=== PATIENT | female | born 1990 | race Caucasian/White ===

== ENCOUNTER 2016-09-01 16:30 | Emergency (ER) | payer SELFPAY ==
[~2016-09-01] VITALS: Ht 152.4 cm; Wt 96.8 kg
[2016-09-01 16:47] LABS: GLUCOSE,POINT OF CARE 105 MG/DL (70-110)
[2016-09-01] MEDS ORDERED: METHOCARBAMOL 500 MG TABLET PO ONE (19:45)
[2016-09-01] MEDS ORDERED: KETOROLAC TROMETHAMINE 60 MG/2 ML VIAL IM ONE (19:45)
[2016-09-01 20:26] VITALS: BP 125/79
== END 2016-09-01 20:28 | disposition home or self-care (01) ==
LOC: EMS 16:40
DX: S16.1XXA Strain of muscle, fascia and tendon at neck level, initial encounter (principal); S29.012A Strain of muscle and tendon of back wall of thorax, initial encounter; J45.909 Unspecified asthma, uncomplicated; V49.50XA Passenger injured in collision with unspecified motor vehicles in traffic accident, initial encounter; Y93.89 Activity, other specified; Y92.89 Other specified places as the place of occurrence of the external cause; Y99.8 Other external cause status
CPT/HCPCS: 81025; 82962; 96372; 99283; J1885

== ENCOUNTER 2017-10-27 18:34 | Emergency (ER) | payer OTHER ==
[~2017-10-27] VITALS: Ht 152.4 cm; Wt 104.5 kg
[2017-10-27] MEDS ORDERED: LEVO50 PO (18:40)
[2017-10-27 19:01] LABS: BASOPHILS % (AUTO) 0.4 % (0.0-2.0); EOSINOPHILS % (AUTO) 1.3 % (1.0-6.0); HEMATOCRIT 39.1 % (36-46); HEMOGLOBIN 13.4 g/dL (12.0-16.0); LYMPHOCYTES % (AUTO) 27.5 % (22.0-44.0); MEAN CORPUSCULAR HEMOGLOBIN 30.5 pg (26.0-34.0); MEAN CORPUSCULAR HGB CONC 34.2 G/dL (31.0-37.0); MEAN CORPUSCULAR VOLUME 89 fL (80-100); MONOCYTES # (AUTO) 0.7 K/uL (0.1-1.0); MONOCYTES % (AUTO) 9.5 % (2.0-9.0); NEUTROPHILS # (AUTO) 4.4 K/uL (1.8-7.7); NEUTROPHILS % (AUTO) 61.3 % (40.0-70.0); PLATELET COUNT (AUTO) 218 K/uL (150-450); RED BLOOD CELL COUNT(AUTO) 4.38 MIL/uL (4.00-5.20); RED CELL DISTRIBUTION WIDTH 14.4 % (11.5-14.5)
[2017-10-27 19:17] LABS: ANION GAP 7 mmol/L (8-16); CALCIUM, TOTAL 8.2 mg/dL (8.8-10.5); CARBON DIOXIDE 26 mmol/L (22-29); CHLORIDE 101 mmol/L (98-107); CREATININE 0.84 mg/dL (0.60-1.30); GLOMERULAR FILTR. RATE CALC > 60 mL/min (>60); GLUCOSE,RANDOM 101 mg/dL (70-110); POTASSIUM 3.6 mmol/L (3.5-5.1); SODIUM SERUM 134 mmol/L (136-145); UREA NITROGEN, BLOOD 12 mg/dL (7-18)
[2017-10-27 19:23] LABS: ALANINE AMINOTRANSFERASE 84 U/L (12-78); ALBUMIN 3.9 g/dL (3.4-5.0); ALKALINE PHOSPHATASE 65 U/L (46-116); AMYLASE 43 U/L (25-115); ASPARTATE AMINOTRANSFERASE 39 U/L (15-37); BILIRUBIN,TOTAL 0.4 mg/dL (0.1-1.0); LIPASE 110 U/L (73-393); TOTAL PROTEIN, SERUM 7.8 g/dL (6.4-8.2)
[2017-10-27] MEDS ORDERED: PB/HYOSCY/ATR/SCOP/LIDO/MAALOX 55 ML BOTTLE PO ONE (19:45)
[2017-10-27 20:05] LABS: APPEARANCE,URINE CLOUDY (CLEAR); BILIRUBIN,URINE NEGATIVE (NEGATIVE); GLUCOSE, URINE (UA) NEGATIVE (NEGATIVE); KETONES,URINE TRACE mg/dL (NEGATIVE); LEUKOCYTE ESTERASE ,URINE SMALL (NEGATIVE); NITRATE,URINE NEGATIVE (NEGATIVE); OCCULT BLOOD,URINE SMALL (NEGATIVE); PROTEIN,URINE POS 1+ (NEGATIVE); UROBILINOGEN,URINE 0.2 mg/dL (<=1.0)
[2017-10-27 20:18] LABS: BACTERIA,URINE Few /HPF (None Seen); SQUAMOUS EPITHELIAL CELL,UR Moderate /LPF (None Seen)
[2017-10-27 20:46] VITALS: BP 115/66
== END 2017-10-27 20:48 | disposition home or self-care (01) ==
LOC: EMS 18:35
DX: K25.9 Gastric ulcer, unspecified as acute or chronic, without hemorrhage or perforation (principal); J45.909 Unspecified asthma, uncomplicated; E03.9 Hypothyroidism, unspecified
CPT/HCPCS: 36415; 80053; 81001; 82150; 83690; 84703; 85025; 87086; 99284; Z7610

== ENCOUNTER 2019-06-04 07:17 | Emergency (ER) | payer OTHER ==
[~2019-06-04] VITALS: Ht 160 cm; Wt 77.6 kg
[~2019-06-04 07:17] MED LIST: LEVO50 PO
[2019-06-04] MEDS ORDERED: IRON-24 PO (07:43)
[2019-06-04 07:50] LABS: BASOPHILS % (AUTO) 0.6 % (0.0-2.0); EOSINOPHILS % (AUTO) 0.2 % (1.0-6.0); HEMATOCRIT 29.4 % (36-46); HEMOGLOBIN 9.3 g/dL (12.0-16.0); LYMPHOCYTES # (AUTO) 0.4 K/uL (1.0-4.8); LYMPHOCYTES % (AUTO) 3.2 % (22.0-44.0); MEAN CORPUSCULAR HEMOGLOBIN 24.8 pg (26.0-34.0); MEAN CORPUSCULAR HGB CONC 31.6 G/dL (31.0-37.0); MEAN CORPUSCULAR VOLUME 79 fL (80-100); MONOCYTES # (AUTO) 0.2 K/uL (0.1-1.0); MONOCYTES % (AUTO) 1.6 % (2.0-9.0); NEUTROPHILS # (AUTO) 10.4 K/uL (1.8-7.7); PLATELET COUNT (AUTO) 231 K/uL (150-450); RED BLOOD CELL COUNT(AUTO) 3.74 MIL/uL (4.00-5.20); RED CELL DISTRIBUTION WIDTH 20.4 % (11.5-14.5)
[2019-06-04 07:53] LABS: NEUTROPHILS % (AUTO) 94.4 % (40.0-70.0)
[2019-06-04 08:00] LABS: ANION GAP 7 mmol/L (8-16); CALCIUM, TOTAL 8.3 mg/dL (8.8-10.5); CARBON DIOXIDE 26 mmol/L (22-29); CHLORIDE 105 mmol/L (98-107); CREATININE 0.65 mg/dL (0.60-1.30); GLOMERULAR FILTR. RATE CALC > 60 mL/min (>60); GLUCOSE,RANDOM 102 mg/dL (70-110); POTASSIUM 3.7 mmol/L (3.5-5.1); SODIUM SERUM 138 mmol/L (136-145); UREA NITROGEN, BLOOD 10 mg/dL (7-18)
[2019-06-04] MEDS ORDERED: ACETAMINOPHEN 500 MG TABLET PO ONE (08:00)
[2019-06-04 08:14] LABS: HCG,QUANTITATIVE < 1 mIU/mL (0-6)
[2019-06-04] MEDS ORDERED: KETOROLAC TROMETHAMINE 30 MG/ML VIAL IVP ONE (08:45)
[2019-06-04] MEDS ORDERED: SODIUM CHLORIDE 0.9% 1,000 ML IV ONE (09:30)
[2019-06-04 09:47] LABS: APPEARANCE,URINE CLOUDY (CLEAR); BILIRUBIN,URINE NEGATIVE (NEGATIVE); GLUCOSE, URINE (UA) NEGATIVE (NEGATIVE); KETONES,URINE NEGATIVE (NEGATIVE); LEUKOCYTE ESTERASE ,URINE LARGE (NEGATIVE); NITRATE,URINE POSITIVE (NEGATIVE); OCCULT BLOOD,URINE SMALL (NEGATIVE); PROTEIN,URINE TRACE (NEGATIVE); UROBILINOGEN,URINE 0.2 mg/dL (<=1.0)
[2019-06-04 09:50] LABS: BACTERIA,URINE Many /HPF (None Seen); WBC,URINE >100 /HPF (0-5)
[2019-06-04 09:51] LABS: SQUAMOUS EPITHELIAL CELL,UR Moderate /LPF (None Seen)
[2019-06-04] MEDS ORDERED: CefTRIAXone 1 GM/DEXTROSE 50 ML IV ONE (10:00)
[2019-06-04 11:20] VITALS: BP 100/74
[2019-06-04] MEDS ORDERED: LEVO88TA7 PO (17:21)
[2019-06-04] MEDS ORDERED: FERR325T22 PO (17:21)
[2019-06-04] MEDS ORDERED: BACL10TA PO (17:21)
[2019-06-04] MEDS ORDERED: GABA-529 PO (17:21)
[2019-06-04] MEDS ORDERED: DOCU100C33 PO (17:21)
[2019-06-04] MEDS ORDERED: ERGO500014 PO (17:21)
== END 2019-06-04 11:58 | disposition home or self-care (01) ==
LOC: EMS 07:18
DX: N10 Acute pyelonephritis (principal); D64.9 Anemia, unspecified; J45.909 Unspecified asthma, uncomplicated; E03.9 Hypothyroidism, unspecified; Z79.899 Other long term (current) drug therapy
CPT/HCPCS: 36415; 80048; 81001; 84702; 85025; 87077; 87086; 87186; 96365; 96375; 99283; J0696; J1885; J7030

== ENCOUNTER 2019-06-04 16:28 | Inpatient (IN) | payer OTHER ==
[~2019-06-04] VITALS: Ht 152.4 cm; Wt 77.3 kg
[~2019-06-04 16:28] MED LIST changes: +IRON-24 PO
[2019-06-04] MEDS ORDERED: KETOROLAC TROMETHAMINE 30 MG/ML VIAL IVP ONE (17:15)
[2019-06-04] MEDS ORDERED: SODIUM CHLORIDE 0.9% 1,000 ML IV ONE ×3 (17:15→19:15)
[2019-06-04] MEDS ORDERED: ACETAMINOPHEN 1000 MG/ISO-OSM 100 ML IV ONE (17:15)
[2019-06-04] MEDS ORDERED: BACL10TA PO (17:21)
[2019-06-04] MEDS ORDERED: GABA-529 PO (17:21)
[2019-06-04] MEDS ORDERED: ERGO500014 PO (17:21)
[2019-06-04] MEDS ORDERED: LEVO88TA7 PO (17:21)
[2019-06-04] MEDS ORDERED: FERR325T22 PO (17:21)
[2019-06-04] MEDS ORDERED: DOCU100C33 PO (17:21)
[2019-06-04 17:55] LABS: BASOPHILS % (AUTO) 0.1 % (0.0-2.0); EOSINOPHILS % (AUTO) 0.1 % (1.0-6.0); HEMATOCRIT 27.2 % (36-46); HEMOGLOBIN 8.6 g/dL (12.0-16.0); LYMPHOCYTES # (AUTO) 0.3 K/uL (1.0-4.8); LYMPHOCYTES % (AUTO) 3.9 % (22.0-44.0); MEAN CORPUSCULAR HEMOGLOBIN 24.8 pg (26.0-34.0); MEAN CORPUSCULAR HGB CONC 31.6 G/dL (31.0-37.0); MEAN CORPUSCULAR VOLUME 78 fL (80-100); MONOCYTES # (AUTO) 0.2 K/uL (0.1-1.0); MONOCYTES % (AUTO) 2.1 % (2.0-9.0); NEUTROPHILS # (AUTO) 7.2 K/uL (1.8-7.7); PLATELET COUNT (AUTO) 194 K/uL (150-450); RED BLOOD CELL COUNT(AUTO) 3.47 MIL/uL (4.00-5.20); RED CELL DISTRIBUTION WIDTH 19.2 % (11.5-14.5)
[2019-06-04 17:58] LABS: NEUTROPHILS % (AUTO) 93.8 % (40.0-70.0)
[2019-06-04 18:03] LABS: ANION GAP 7 mmol/L (8-16); CALCIUM, TOTAL 7.8 mg/dL (8.8-10.5); CARBON DIOXIDE 26 mmol/L (22-29); CHLORIDE 105 mmol/L (98-107); CREATININE 0.77 mg/dL (0.60-1.30); GLOMERULAR FILTR. RATE CALC > 60 mL/min (>60); GLUCOSE,RANDOM 98 mg/dL (70-110); POTASSIUM 3.4 mmol/L (3.5-5.1); SODIUM SERUM 138 mmol/L (136-145); UREA NITROGEN, BLOOD 8 mg/dL (7-18)
[2019-06-04 18:10] LABS: PLATELET MORPHOLOGY COMMENT GIANT PLTS PRESENT
[2019-06-04 18:22] LABS: ALANINE AMINOTRANSFERASE 23 U/L (12-78); ALBUMIN 2.8 g/dL (3.4-5.0); ALKALINE PHOSPHATASE 44 U/L (46-116); ASPARTATE AMINOTRANSFERASE 13 U/L (15-37); BILIRUBIN,TOTAL 0.2 mg/dL (0.1-1.0); TOTAL PROTEIN, SERUM 6.1 g/dL (6.4-8.2)
[2019-06-04 18:26] LABS: LACTIC ACID 2.3 mmol/L (0.4-2.0)
[2019-06-04] MEDS ORDERED: CefTRIAXone 1 GM/DEXTROSE 50 ML IV ONE (19:15)
[2019-06-04] MEDS ORDERED: 0.9% SODIUM CHLORIDE 10 ML SYRINGE IVP PRN ×2 (19:30→21:15)
[2019-06-04] MEDS ORDERED: ACETAMINOPHEN 325 MG TABLET PO PRN (19:30)
[2019-06-04] MEDS ORDERED: ONDANSETRON HCL 4 MG/2 ML VIAL IVP PRN ×2 (19:30→21:15)
[2019-06-04] MEDS ORDERED: ZOLPIDEM TARTRATE 5 MG TABLET PO PRN (21:15)
[2019-06-04] MEDS ORDERED: MAGNESIUM SULFATE 4 GM/WATER 100 ML IV PRN (21:15)
[2019-06-04] MEDS ORDERED: POTASSIUM CHL 10 MEQ/WATER 50 ML IV PRN (21:15)
[2019-06-04] MEDS ORDERED: MAGNESIUM SULFATE 2 GM/WATER 50 ML IV PRN (21:15)
[2019-06-04] MEDS ORDERED: MAGNESIUM OXIDE 400 MG TABLET PO PRN (21:15)
[2019-06-04] MEDS: SODIUM CHLORIDE 0.9% 1,000 ML IV SCH (21:57)
[2019-06-04] MEDS: POTASSIUM CHLORIDE 20 MEQ ER TABLET PO PRN (22:55)
[2019-06-04 23:50] VITALS: BP 124/68
[2019-06-05] MEDS ORDERED: HEPARIN SODIUM,PORCINE 5,000 UNITS/ML VIAL SQ SCH
[2019-06-05 04:30] VITALS: BP 96/57
[2019-06-05] MEDS: LEVOTHYROXINE SODIUM 88 MCG TABLET PO SCH (06:12)
[2019-06-05 07:51] VITALS: BP 99/52
[2019-06-05 08:17] LABS: BASOPHILS % (AUTO) 0.4 % (0.0-2.0); HEMOGLOBIN 7.9 g/dL (12.0-16.0); LYMPHOCYTES # (AUTO) 1.9 K/uL (1.0-4.8); LYMPHOCYTES % (AUTO) 21.6 % (22.0-44.0); MEAN CORPUSCULAR HEMOGLOBIN 24.9 pg (26.0-34.0); MEAN CORPUSCULAR HGB CONC 31.5 G/dL (31.0-37.0); MEAN CORPUSCULAR VOLUME 79 fL (80-100); MONOCYTES # (AUTO) 0.9 K/uL (0.1-1.0); NEUTROPHILS # (AUTO) 5.7 K/uL (1.8-7.7); PLATELET COUNT (AUTO) 183 K/uL (150-450); RED BLOOD CELL COUNT(AUTO) 3.17 MIL/uL (4.00-5.20); RED CELL DISTRIBUTION WIDTH 20.4 % (11.5-14.5)
[2019-06-05 08:27] LABS: % IRON SATURATION 3.6 % (22-44); IRON, SERUM 9 mcg/dL (50-175); TOTAL IRON BINDING CAPACITY 245 mcg/dL (250-450)
[2019-06-05 08:41] LABS: ALBUMIN 2.2 g/dL (3.4-5.0); ANION GAP 7 mmol/L (8-16); CALCIUM, TOTAL 7.2 mg/dL (8.8-10.5); CARBON DIOXIDE 23 mmol/L (22-29); CHLORIDE 110 mmol/L (98-107); CREATININE 0.54 mg/dL (0.60-1.30); GLOMERULAR FILTR. RATE CALC > 60 mL/min (>60); GLUCOSE,RANDOM 73 mg/dL (70-110); POTASSIUM 3.5 mmol/L (3.5-5.1); SODIUM SERUM 140 mmol/L (136-145); THYROID STIMULATING HORMONE 1.09 uIU/mL (0.36-3.74); UREA NITROGEN, BLOOD 6 mg/dL (7-18)
[2019-06-05] MEDS ORDERED: SODIUM CHLORIDE 0.9% 1,000 ML IV ONE (08:45)
[2019-06-05] MEDS: PANTOPRAZOLE SODIUM 40 MG DR TABLET PO SCH (08:53)
[2019-06-05] MEDS: FERROUS SULFATE 325 MG EC TABLET PO SCH ×3 (08:53→17:02)
[2019-06-05] MEDS: SODIUM CHLORIDE 0.9% 1,000 ML IV SCH ×2 (09:45→20:27)
[2019-06-05] MEDS: POTASSIUM CHLORIDE 20 MEQ ER TABLET PO PRN (11:16)
[2019-06-05 11:24] VITALS: BP 99/53
[2019-06-05] MEDS: ACETAMINOPHEN 325 MG TABLET PO PRN (11:55)
[2019-06-05 15:02] VITALS: BP 104/54
[2019-06-05 19:42] VITALS: BP 94/54
[2019-06-05] MEDS ORDERED: CefTRIAXone 1 GM/DEXTROSE 50 ML IV SCH (20:00)
[2019-06-05 23:35] VITALS: BP 105/54
[2019-06-06 03:35] VITALS: BP 111/64
[2019-06-06] MEDS: SODIUM CHLORIDE 0.9% 1,000 ML IV SCH (04:38)
[2019-06-06] MEDS: LEVOTHYROXINE SODIUM 88 MCG TABLET PO SCH (06:21)
[2019-06-06 07:27] VITALS: BP 119/71
[2019-06-06] MEDS: FERROUS SULFATE 325 MG EC TABLET PO SCH (08:17)
[2019-06-06] MEDS: PANTOPRAZOLE SODIUM 40 MG DR TABLET PO SCH (08:17)
[2019-06-06] MEDS: ACETAMINOPHEN 325 MG TABLET PO PRN (08:17)
[2019-06-06 11:10] VITALS: BP 103/69
[2019-06-09] MEDS ORDERED: ERGOCALCIFEROL (VIT D2) 50,000 UNITS CAPSULE PO SCH (09:00)
== END 2019-06-06 13:30 | disposition home or self-care (01) | DRG 720 ==
LOC: EMS 16:29 → 6N 19:46
PROVIDERS: ADMIT Internal Medicine; ATTEND Internal Medicine
DX: A41.9 Sepsis, unspecified organism (principal); E44.0 Moderate protein-calorie malnutrition; N10 Acute pyelonephritis; E03.9 Hypothyroidism, unspecified; J45.909 Unspecified asthma, uncomplicated; E87.6 Hypokalemia; E66.9 Obesity, unspecified; D63.8 Anemia in other chronic diseases classified elsewhere; Z87.440 Personal history of urinary (tract) infections; Z98.51 Tubal ligation status; Z68.33 Body mass index [BMI] 33.0-33.9, adult
CPT/HCPCS: 76770; 83540; 83550; 83605; 83735; 84132; 84443; J0131; J0696; J1644; J1885; J3480; J7030

== ENCOUNTER 2020-01-09 21:08 | Emergency (ER) | payer OTHER ==
[~2020-01-09] VITALS: Ht 152.4 cm; Wt 81.8 kg
[~2020-01-09 21:08] MED LIST changes: +ERGO500014 PO; +FERR325T22 PO; -IRON-24 PO; -LEVO50 PO; +LEVO88TA7 PO
[2020-01-09] MEDS ORDERED: SODIUM CHLORIDE 0.9% 500 ML IV ONE (22:15)
[2020-01-09] MEDS ORDERED: ACETAMINOPHEN 325 MG TABLET PO ONE (22:15)
[2020-01-09] MEDS ORDERED: CefTRIAXone 1 GM/DEXTROSE 50 ML IV ONE (22:15)
[2020-01-09] MEDS ORDERED: ONDANSETRON HCL 4 MG/2 ML VIAL IVP ONE (22:15)
[2020-01-09 22:48] LABS: BASOPHILS % (AUTO) 0.2 % (0.0-2.0); EOSINOPHILS % (AUTO) 0.7 % (1.0-6.0); HEMATOCRIT 33.4 % (36-46); HEMOGLOBIN 10.7 g/dL (12.0-16.0); LYMPHOCYTES # (AUTO) 1.2 K/uL (1.0-4.8); LYMPHOCYTES % (AUTO) 15.3 % (22.0-44.0); MEAN CORPUSCULAR HEMOGLOBIN 27.6 pg (26.0-34.0); MEAN CORPUSCULAR HGB CONC 31.9 G/dL (31.0-37.0); MEAN CORPUSCULAR VOLUME 87 fL (80-100); MONOCYTES % (AUTO) 12.2 % (2.0-9.0); NEUTROPHILS # (AUTO) 5.8 K/uL (1.8-7.7); NEUTROPHILS % (AUTO) 71.6 % (40.0-70.0); PLATELET COUNT (AUTO) 213 K/uL (150-450); RED BLOOD CELL COUNT(AUTO) 3.87 MIL/uL (4.00-5.20); RED CELL DISTRIBUTION WIDTH 18.2 % (11.5-14.5)
[2020-01-09 22:52] LABS: APPEARANCE,URINE CLOUDY (CLEAR); BILIRUBIN,URINE NEGATIVE (NEGATIVE); GLUCOSE, URINE (UA) NEGATIVE (NEGATIVE); KETONES,URINE NEGATIVE (NEGATIVE); LEUKOCYTE ESTERASE ,URINE SMALL (NEGATIVE); NITRATE,URINE NEGATIVE (NEGATIVE); OCCULT BLOOD,URINE MODERATE (NEGATIVE); PH,URINE 6.5 (5.0-8.0); PROTEIN,URINE TRACE (NEGATIVE)
[2020-01-09 22:58] LABS: BACTERIA,URINE Few /HPF (None Seen); SQUAMOUS EPITHELIAL CELL,UR Many /LPF (None Seen); YEAST,URINE Few /HPF (None Seen)
[2020-01-09 23:05] LABS: ANION GAP 6 mmol/L (8-16); CALCIUM, TOTAL 8.7 mg/dL (8.8-10.5); CARBON DIOXIDE 27 mmol/L (22-29); CHLORIDE 100 mmol/L (98-107); CREATININE 0.78 mg/dL (0.60-1.30); GLOMERULAR FILTR. RATE CALC > 60 mL/min (>60); GLUCOSE,RANDOM 124 mg/dL (70-110); POTASSIUM 3.7 mmol/L (3.5-5.1); SODIUM SERUM 133 mmol/L (136-145); UREA NITROGEN, BLOOD 7 mg/dL (7-18)
[2020-01-09 23:13] LABS: LACTIC ACID 1.3 mmol/L (0.4-2.0)
[2020-01-09 23:20] LABS: ALANINE AMINOTRANSFERASE 25 U/L (12-78); ALBUMIN 3.2 g/dL (3.4-5.0); ALKALINE PHOSPHATASE 45 U/L (46-116); ASPARTATE AMINOTRANSFERASE 14 U/L (15-37); BILIRUBIN,TOTAL 0.2 mg/dL (0.1-1.0); FREE T4 (FREE THYROXINE) 1.01 ng/dL (0.76-1.46); HCG,QUANTITATIVE 1 mIU/mL (0-6); THYROID STIMULATING HORMONE 1.19 uIU/mL (0.36-3.74); TOTAL PROTEIN, SERUM 7.4 g/dL (6.4-8.2)
[2020-01-10] MEDS ORDERED: SODIUM CHLORIDE 0.9% 100 ML ONE (00:20)
[2020-01-10] MEDS ORDERED: IOVERSOL 350 MG/ML 100 ML VIAL ONE (00:20)
[2020-01-10 00:31] LABS: LIPASE 77 U/L (73-393)
[2020-01-10] MEDS ORDERED: KETOROLAC TROMETHAMINE 30 MG/ML VIAL IVP ONE (01:45)
[2020-01-10 01:47] VITALS: BP 108/52
== END 2020-01-10 02:07 | disposition home or self-care (01) ==
LOC: EMS 21:08
DX: N12 Tubulo-interstitial nephritis, not specified as acute or chronic (principal); Z20.828 Contact with and (suspected) exposure to other viral communicable diseases; J45.909 Unspecified asthma, uncomplicated; Z79.899 Other long term (current) drug therapy
CPT/HCPCS: 36415; 74177; 80053; 81001; 83605; 83690; 84439; 84443; 84702; 85025; 87040; 87086; 87426; 96365; 96375; 99285; J0696; J1885; J2405; J7040; J7050; Q9967

== ENCOUNTER 2020-07-01 18:47 | Emergency (ER) | payer OTHER ==
[~2020-07-01] VITALS: Ht 152.4 cm; Wt 81.8 kg
[2020-07-01 20:23] VITALS: BP 119/68
[2020-07-01] MEDS ORDERED: SODIUM CHLORIDE 0.9% 1,000 ML IV ONE (22:15)
[2020-07-01] MEDS ORDERED: ONDANSETRON HCL 4 MG/2 ML VIAL IVP ONE (22:15)
[2020-07-01 22:19] LABS: BASOPHILS % (AUTO) 0.1 % (0.0-2.0); EOSINOPHILS % (AUTO) 0.4 % (1.0-6.0); HEMATOCRIT 35.9 % (36-46); HEMOGLOBIN 11.6 g/dL (12.0-16.0); LYMPHOCYTES # (AUTO) 2.4 K/uL (1.0-4.8); LYMPHOCYTES % (AUTO) 25.2 % (22.0-44.0); MEAN CORPUSCULAR HGB CONC 32.3 G/dL (31.0-37.0); MEAN CORPUSCULAR VOLUME 90 fL (80-100); MONOCYTES # (AUTO) 0.7 K/uL (0.1-1.0); MONOCYTES % (AUTO) 7.2 % (2.0-9.0); NEUTROPHILS # (AUTO) 6.3 K/uL (1.8-7.7); NEUTROPHILS % (AUTO) 67.1 % (40.0-70.0); PLATELET COUNT (AUTO) 230 K/uL (150-450); RED BLOOD CELL COUNT(AUTO) 3.99 MIL/uL (4.00-5.20); RED CELL DISTRIBUTION WIDTH 14.9 % (11.5-14.5)
[2020-07-01] MEDS ORDERED: PB/HYOSCY/ATR/SCOP/LIDO/MAALOX 55 ML BOTTLE PO ONE (22:30)
[2020-07-01 22:58] LABS: ALANINE AMINOTRANSFERASE 19 U/L (12-78); ALBUMIN 3.4 g/dL (3.4-5.0); ALKALINE PHOSPHATASE 35 U/L (46-116); ASPARTATE AMINOTRANSFERASE 10 U/L (15-37); BILIRUBIN,TOTAL 0.2 mg/dL (0.1-1.0); CALCIUM, TOTAL 8.1 mg/dL (8.8-10.5); CARBON DIOXIDE 27 mmol/L (22-29); CREATININE 0.63 mg/dL (0.60-1.30); GLOMERULAR FILTR. RATE CALC > 60 mL/min (>60); GLUCOSE,RANDOM 89 mg/dL (70-110); HCG,QUANTITATIVE < 1 mIU/mL (0-6); LIPASE 106 U/L (73-393); UREA NITROGEN, BLOOD 11 mg/dL (7-18)
[2020-07-01 23:03] LABS: ANION GAP 9 mmol/L (8-16); CHLORIDE 104 mmol/L (98-107); POTASSIUM 3.3 mmol/L (3.5-5.1); SODIUM SERUM 140 mmol/L (136-145)
== END 2020-07-01 22:54 | disposition home or self-care (01) ==
LOC: EMS 18:50
DX: R10.13 Epigastric pain (principal); R19.7 Diarrhea, unspecified; J45.909 Unspecified asthma, uncomplicated
CPT/HCPCS: 80053; 83690; 84702; 85025; 99283; J2405; J7030

== ENCOUNTER 2021-03-06 10:50 | Emergency (ER) | payer OTHER ==
[~2021-03-06] VITALS: Ht 152.4 cm; Wt 95.5 kg
[~2021-03-06 10:50] MED LIST changes: -ERGO500014 PO; +ERGO500093 PO
[2021-03-06] MEDS ORDERED: KETOROLAC TROMETHAMINE 30 MG/ML VIAL IVP ONE (12:30)
[2021-03-06 12:52] LABS: BASOPHILS % (AUTO) 0.2 % (0.0-2.0); EOSINOPHILS % (AUTO) 0.4 % (1.0-6.0); HEMOGLOBIN 10.6 g/dL (12.0-16.0); LYMPHOCYTES # (AUTO) 1.7 K/uL (1.0-4.8); LYMPHOCYTES % (AUTO) 14.8 % (22.0-44.0); MEAN CORPUSCULAR VOLUME 88 fL (80-100); MONOCYTES # (AUTO) 1.3 K/uL (0.1-1.0); MONOCYTES % (AUTO) 11.1 % (2.0-9.0); NEUTROPHILS # (AUTO) 8.6 K/uL (1.8-7.7); NEUTROPHILS % (AUTO) 73.5 % (40.0-70.0); PLATELET COUNT (AUTO) 257 K/uL (150-450); RED BLOOD CELL COUNT(AUTO) 3.77 MIL/uL (4.00-5.20); RED CELL DISTRIBUTION WIDTH 15.7 % (11.5-14.5)
[2021-03-06 13:10] LABS: APPEARANCE,URINE CLOUDY (CLEAR); BILIRUBIN,URINE NEGATIVE (NEGATIVE); GLUCOSE, URINE (UA) NEGATIVE (NEGATIVE); KETONES,URINE NEGATIVE (NEGATIVE); LEUKOCYTE ESTERASE ,URINE SMALL (NEGATIVE); NITRATE,URINE POSITIVE (NEGATIVE); OCCULT BLOOD,URINE MODERATE (NEGATIVE); PH,URINE 7.5 (5.0-8.0); PROTEIN,URINE NEGATIVE (NEGATIVE)
[2021-03-06 13:14] LABS: BACTERIA,URINE Many /HPF (None Seen); SQUAMOUS EPITHELIAL CELL,UR Moderate /LPF (None Seen)
[2021-03-06 13:16] LABS: ANION GAP 7 mmol/L (8-16); CALCIUM, TOTAL 8.6 mg/dL (8.8-10.5); CARBON DIOXIDE 29 mmol/L (22-29); CHLORIDE 103 mmol/L (98-107); CREATININE 0.63 mg/dL (0.60-1.30); GLOMERULAR FILTR. RATE CALC > 60 mL/min (>60); GLUCOSE,RANDOM 91 mg/dL (70-110); POTASSIUM 4.2 mmol/L (3.5-5.1); SODIUM SERUM 139 mmol/L (136-145); UREA NITROGEN, BLOOD 9 mg/dL (7-18)
[2021-03-06 13:38] LABS: ALANINE AMINOTRANSFERASE 19 U/L (12-78); ALBUMIN 3.3 g/dL (3.4-5.0); ALKALINE PHOSPHATASE 55 U/L (46-116); ASPARTATE AMINOTRANSFERASE 11 U/L (15-37); BILIRUBIN,TOTAL 0.2 mg/dL (0.1-1.0); HCG,QUANTITATIVE < 1 mIU/mL (0-6); LIPASE 62 U/L (73-393); TOTAL PROTEIN, SERUM 7.5 g/dL (6.4-8.2)
[2021-03-06 14:28] VITALS: BP 110/66
== END 2021-03-06 14:35 | disposition home or self-care (01) ==
LOC: EMS 10:54
DX: N12 Tubulo-interstitial nephritis, not specified as acute or chronic (principal); E03.9 Hypothyroidism, unspecified; Z20.822 Contact with and (suspected) exposure to COVID-19
CPT/HCPCS: 36415; 80053; 81001; 83690; 84702; 84703; 85025; 87077; 87086; 87186; 96374; 99283; J1885; U0003; 96372

== ENCOUNTER 2023-03-18 23:01 | Emergency (ER) | payer OTHER ==
[~2023-03-18] VITALS: Ht 162.6 cm; Wt 72.7 kg
[~2023-03-18 23:01] MED LIST changes: -ERGO500093 PO; -FERR325T22 PO
[2023-03-18 23:03] VITALS: TEMP 99.5
[2023-03-19] MEDS: KETOROLAC TROMETHAMINE 30 MG/ML VIAL IM ONE
[2023-03-19] MEDS: TraMADol HCL 50 MG TABLET PO ONE
[2023-03-19] MEDS ORDERED: TRAM-559 PO (00:34)
[2023-03-19 01:30] VITALS: BP 119/63; PULSE 79; RESP 18
== END 2023-03-19 05:16 | disposition home or self-care (01) ==
LOC: EMS 23:02
DX: S63.502A Unspecified sprain of left wrist, initial encounter (principal); S60.212A Contusion of left wrist, initial encounter; J45.909 Unspecified asthma, uncomplicated; E03.9 Hypothyroidism, unspecified; Z98.51 Tubal ligation status; Z98.890 Other specified postprocedural states; W22.8XXA Striking against or struck by other objects, initial encounter; Y93.89 Activity, other specified; Y92.89 Other specified places as the place of occurrence of the external cause; Y99.8 Other external cause status
CPT/HCPCS: 99283; 73110 ×2; 96372; J1885